=== PATIENT | female | born 1955 | race Caucasian/White ===

== ENCOUNTER 2018-07-22 21:38 | Emergency (ER) | payer OTHER ==
[~2018-07-22] VITALS: Ht 157.5 cm; Wt 68.0 kg
[2018-07-22 21:40] VITALS: BP 98/64
[2018-07-22] MEDS ORDERED: Acetaminophen 500mg (ES) tab ORAL ONE (22:15)
[2018-07-22] MEDS ORDERED: Albuterol ud Inhalation HHN ONE (22:15)
[2018-07-22] MEDS ORDERED: Ipratropium 0.02% Inh Soln 2.5ml UD HHN ONE (22:15)
[2018-07-22 23:02] LABS: HEMATOCRIT 32.5 % (37.0-47.0); HEMOGLOBIN 10.7 G/DL (12.0-16.0); MEAN CORPUSCULAR VOLUME 86 FL (80-99); PLATELET COUNT 227 K/UL (150-450); RED CELL DISTRIBUTION WIDTH 11.2 % (11.6-14.8); WHITE BLOOD COUNT 11.8 K/UL (4.8-10.8)
[2018-07-22 23:39] LABS: ANION GAP 13 mmol/L (5-15); BLOOD UREA NITROGEN 22 mg/dL (7-18); CALCIUM 8.5 MG/DL (8.5-10.1); CARBON DIOXIDE 25 MMOL/L (21-32); CHLORIDE 103 MMOL/L (98-107); CREATININE 1.3 MG/DL (0.55-1.30); POTASSIUM 2.9 MMOL/L (3.5-5.1); SODIUM 140 MMOL/L (136-145)
[2018-07-22 23:54] LABS: ALANINE AMINOTRANSFERASE 26 U/L (12-78); ALBUMIN 2.5 G/DL (3.4-5.0); ALBUMIN/GLOBULIN RATIO 0.5 (1.0-2.7); ALKALINE PHOSPHATASE 104 U/L (46-116); ASPARTATE AMINO TRANSFERASE 22 U/L (15-37); BILIRUBIN,TOTAL 0.9 MG/DL (0.2-1.0); CKMB 1.2 NG/ML (0.0-3.6); CREATINE KINASE 149 U/L (26-308)
[2018-07-23] MEDS ORDERED: PROMETHAZINE-D118 ML ORAL (00:57)
[2018-07-23] MEDS ORDERED: LEVAQUIN750 MG ORAL (00:57)
[2018-07-23] MEDS ORDERED: TYLENOL EXTRA500 MG ORAL (00:57)
[2018-07-23] MEDS ORDERED: Levofloxacin 500mg tab ORAL ONE (01:00)
[2018-07-23 01:05] VITALS: BP 107/62
--- NOTE | 2018-07-23 03:16 | Emergency Room Report ---
History of Present Illness General Chief Complaint: Syncope Source: Patient Present Illness HPI 63-year-old female resents ED for evaluation. Patient brought in by EMS status post syncopal episode. States that she's been not feeling well for the last few days. Has had a cough with body aches and chills. States she recently got a flu shot. Cough is productive. Pain is dull, 7 out of 10, nonradiating. Notes pain to the left side of her back. Denies fevers or chills. States she went to the spa today which likely dehydrated her and she got dizzy and passed out. Denies head injury. Denies headache. No other aggravating relieving factors. Denies any other associated symptoms Allergies: Uncoded Allergies: DOGS, CATS (Allergy, Unknown, 07/22/18) Patient History Past Medical History: none, HTN, GERD Past Surgical History: none Pertinent Family History: none Social History: Denies: smoking, alcohol use, drug use Last Menstrual Period: 15 years ago Now: No Immunizations: UTD Reviewed Nursing Documentation: PMH: Agreed; PSxH: Agreed Nursing Documentation-PMH Hx Hypertension: Yes - htn, hyperlipidemia Hx Gastrointestinal Problems: Yes - gerd Review of Systems All Other Systems: negative except mentioned in HPI Physical Exam Vital Signs Date Time Temp Pulse Resp B/P (MAP) Pulse Ox O2 Delivery O2 Flow Rate FiO2 07/22/18 21:31 98.2 104 16 98/64 98 Room Air 07/22/18 22:23 21 Sp02 EP Interpretation: reviewed, normal General Appearance: no apparent distress, alert, GCS 15, non-toxic Head: normocephalic Eyes: bilateral eye normal inspection, bilateral eye PERRL ENT: normal ENT inspection Neck: normal inspection Respiratory: decreased breath sounds, crackles Cardiovascular #1: regular rate, rhythm, no edema Gastrointestinal: normal inspection Rectal: deferred Genitourinary: no CVA tenderness Musculoskeletal: normal inspection Neurologic: alert, oriented x3, responsive, motor strength/tone normal, sensory intact, speech normal Psychiatric: judgement/insight normal, memory normal, mood/affect normal, no suicidal/homicidal ideation Skin: normal inspection Lymphatic: normal inspection Medical Decision Making Diagnostic Impression: Primary Impression: Pneumonia Qualified Codes: J18.1 - Lobar pneumonia, unspecified organism Additional Impression: Syncope Qualified Codes: R55 - Syncope and collapse ER Course Hospital Course 63-year-old female presents to ED complaining of bodyaches, cough, dizziness, syncope Differential diagnoses include: URI, bronchitis, asthma/COPD, pneumonia Clinical course Patient placed on stretcher. After initial history, physical exam reveals an elderly female in no acute distress. Bilateral TM unremarkable. No pharyngeal erythema. No tonsillar exudates. No lymphadenopathy. lungs clear. I ordered labs, IV fluids, pain meds, chest x-ray. Labs reviewed-leukocytosis noted, hemoglobin/hematocrit stable, K 2.9, flu swab negative EKg - NSR, no acute ischemic changes interpreted by me Chest x-ray shows LLL infiltrate On reassessment patient states she feels better. Per curb-65 criteria, patient does not require admission. Patient can be safely discharged to home with outpatient therapy. Patient agrees with plan. Given Levaquin here Diagnosis - pneumonia, syncope Stable and discharged home with prescriptions for promethazine, Levaquin. Instructed to followup with PMD. Return to ED if symptoms recur or worsen Labs Test 07/22/18 22:30 White Blood Count 11.8 K/UL (4.8-10.8) Red Blood Count 3.80 M/UL (4.20-5.40) Hemoglobin 10.7 G/DL (12.0-16.0) Hematocrit 32.5 % (37.0-47.0) Mean Corpuscular Volume 86 FL (80-99) Mean Corpuscular Hemoglobin 28.1 PG (27.0-31.0) Mean Corpuscular Hemoglobin Concent 32.8 G/DL (32.0-36.0) Red Cell Distribution Width 11.2 % (11.6-14.8) Platelet Count 227 K/UL (150-450) Mean Platelet Volume 6.9 FL (6.5-10.1) Neutrophils (%) (Auto) % (45.0-75.0) Lymphocytes (%) (Auto) % (20.0-45.0) Monocytes (%) (Auto) % (1.0-10.0) Eosinophils (%) (Auto) % (0.0-3.0) Basophils (%) (Auto) % (0.0-2.0) Differential Total Cells Counted 100 Neutrophils % (Manual) 80 % (45-75) Lymphocytes % (Manual) 11 % (20-45) Monocytes % (Manual) 7 % (1-10) Eosinophils % (Manual) 0 % (0-3) Basophils % (Manual) 0 % (0-2) Band Neutrophils 2 % (0-8) Platelet Estimate Adequate Platelet Morphology Normal Red Blood Cell Morphology Normal Sodium Level 140 MMOL/L (136-145) Potassium Level 2.9 MMOL/L (3.5-5.1) Chloride Level 103 MMOL/L (98-107) Carbon Dioxide Level 25 MMOL/L (21-32) Anion Gap 13 mmol/L (5-15) Blood Urea Nitrogen 22 mg/dL (7-18) Creatinine 1.3 MG/DL (0.55-1.30) Estimat Glomerular Filtration Rate 41.4 mL/min (>60) Glucose Level 124 MG/DL (74-106) Calcium Level 8.5 MG/DL (8.5-10.1) Total Bilirubin 0.9 MG/DL (0.2-1.0) Aspartate Amino Transf (AST/SGOT) 22 U/L (15-37) Alanine Aminotransferase (ALT/SGPT) 26 U/L (12-78) Alkaline Phosphatase 104 U/L (46-116) Total Creatine Kinase 149 U/L (26-308) Creatine Kinase MB 1.2 NG/ML (0.0-3.6) Creatine Kinase MB Relative Index 0.8 Troponin I 0.001 ng/mL (0.000-0.056) Pro-B-Type Natriuretic Peptide 517 pg/mL (0-125) Total Protein 7.2 G/DL (6.4-8.2) Albumin 2.5 G/DL (3.4-5.0) Globulin 4.7 g/dL Albumin/Globulin Ratio 0.5 (1.0-2.7) EKG Diagnostic Results Rate: normal Rhythm: NSR ST Segments: no acute changes ASA given to the pt in ED: No Rhythm Strip Diag. Results EP Interpretation: yes Rhythm: NSR, no PVC's, no ectopy Chest X-Ray Diagnostic Results Chest X-Ray Diagnostic Results : Chest X-Ray Ordered: Yes # of Views/Limited/Complete: 1 View Indication: Other - syncope EP Interpretation: Yes Interpretation: no pneumothorax, other - LLL consolidation Impression: Other - pneumonia Electronically Signed by: Electronically signed by Abhay Arambula MD Last Vital Signs Date Time Temp Pulse Resp B/P (MAP) Pulse Ox O2 Delivery O2 Flow Rate FiO2 07/23/18 01:05 98.6 102 107/62 96 Room Air 07/22/18 22:39 20 21 Status: improved Disposition: HOME, SELF-CARE Condition: Stable Scripts Acetaminophen* (TYLENOL EXTRA STRENGTH*) 500 Mg Tablet 500 MG ORAL Q8H PRN for Prn Headache/Temp > 101, #30 TAB 0 Refills Prov: Abhay Arambula MD 07/23/18 D-Methorphan Hb/Prometh Hcl* (PROMETHAZINE-DM SYRUP*) 118 Ml Syrup 5 ML ORAL Q6H PRN for For Cough, #118 ML 0 Refills Prov: Abhay Arambula MD 07/23/18 Levofloxacin* (LEVAQUIN*) 750 Mg Tablet 750 MG ORAL DAILY for 5 Days, TAB Prov: Abhay Arambula MD 07/23/18 Patient Instructions: Community-Acquired Pneumonia, Adult, [id number] Additional Instructions: patient is not able to fly on her scheduled date of 07/26. please help the patient reschedule her flight to a later date Abhay Arambula MD Jul 23, 2018 03:16
--- NOTE | 2018-07-23 10:10 | Diagnostic Imaging Report ---
Indication: Cough Technique: One view of the chest Comparison: none Findings: Hazy opacity is seen in the left lateral lung and left lung base. There are some linear opacities in the retrocardiac region. The right lung and pleural space are clear. The heart size is normal. Impression: Left basilar infiltrate, likely pneumonia This agrees with the preliminary interpretation provided by the emergency room physician
== END 2018-07-23 01:05 | disposition home or self-care (01) ==
LOC: EDBD 21:38 → EMR 22:00
DX: J18.9 Pneumonia, unspecified organism (principal); R55 Syncope and collapse; E78.5 Hyperlipidemia, unspecified; K21.9 Gastro-esophageal reflux disease without esophagitis
CPT/HCPCS: 36415; 71045; 80053; 82550; 82553; 83880; 84484; 85007; 85025; 86710; 93005; 94640; 94664; 96360; 99284; J8499

== ENCOUNTER 2018-07-25 11:14 | Inpatient (IN) | payer OTHER ==
[~2018-07-25] VITALS: Ht 157.5 cm; Wt 72.6 kg
[~2018-07-25 11:14] MED LIST: LEVAQUIN750 MG ORAL; PROMETHAZINE-D118 ML ORAL; TYLENOL EXTRA500 MG ORAL
[2018-07-25 11:24] VITALS: BP 127/78
[2018-07-25] MEDS ORDERED: ATORVASTATIN CA20 MG ORAL (11:32)
[2018-07-25] MEDS ORDERED: AMLODIPINE BESYL5 MG ORAL (11:32)
[2018-07-25] MEDS ORDERED: PRILOSEC OTC20 MG ORAL (11:32)
[2018-07-25] MEDS ORDERED: Albuterol ud Inhalation HHN ONE ×2 (11:45→16:45)
[2018-07-25] MEDS ORDERED: Ipratropium 0.02% Inh Soln 2.5ml UD HHN ONE (11:45)
[2018-07-25] MEDS ORDERED: oxyCODONE HCL/Acetaminophen 5/325mg ORAL ONE (11:45)
--- NOTE | 2018-07-25 12:39 | Emergency Room Report ---
History of Present Illness General Chief Complaint: Upper Respiratory Illness Source: Patient, Medical Record Present Illness HPI The patient was seen July 22 and diagnosed with pneumonia on the left-hand side. She continues to have persistent pain on that side as pleuritic. It's now constant also. She's had a cough that she's been unable to control. She was given a prescription for Phenergan with codeine however she feels that that medicine is making the cough worse. She also has a history of asthma and is used to using Atrovent nebulizer. She tried to use an inhaler however she felt that this was making the cough worse also. She feels that prednisone may help her also. She was started on Levaquin and continues to take the Levaquin at this time. The pain is severe 10/10, pleuritic, not radiating, more posterior chest. Cough is severe and unremitting, though not taking inhaler or cough medicine as she feels this worsens cough. She flew to [facility] from [facility] on the . She was exposed to smoke there and started to have some cough. She had a sore throat at that time and was exposed to young kids with possible URIs. No NVD, dysuria. No rashes. No headache. After IV, no dizziness. During the prior visit she was told her blood pressure was low and her potassium also low. She stopped taking her blood pressure medicine as BP was low. An influenza swab was negative. When she presented before, she had gone to a spa and passed out. Denies calf pain or edema. No prior h/o blood clots. Allergies: Uncoded Allergies: DOGS, CATS (Allergy, Unknown, 07/22/18) Patient History Past Medical History: see triage record, old chart reviewed Social History: Denies: smoking, alcohol use, drug use Social History Narrative from [facility] Last Menstrual Period: menopause Reviewed Nursing Documentation: PMH: Agreed; PSxH: Agreed Nursing Documentation-PMH Past Medical History: No History, Except For Hx Hypertension: Yes - htn, hyperlipidemia Hx Asthma: Yes Hx COPD: Yes Hx Gastrointestinal Problems: Yes - gerd Review of Systems All Other Systems: negative except mentioned in HPI Physical Exam Vital Signs Date Time Temp Pulse Resp B/P (MAP) Pulse Ox O2 Delivery O2 Flow Rate FiO2 07/25/18 11:24 89 16 Room Air 07/25/18 11:24 98.2 127/78 96 07/25/18 11:57 21 Sp02 EP Interpretation: reviewed, normal General Appearance: no apparent distress, GCS 15, non-toxic, other - weak but ambulatory Head: normocephalic, atraumatic Eyes: bilateral eye normal inspection, bilateral eye PERRL, bilateral eye EOMI ENT: normal pharynx, normal voice, moist mucus membranes Neck: supple Respiratory: decreased breath sounds, wheezing, expiration Cardiovascular #1: regular rate, rhythm, no edema Cardiovascular #2: 2+ radial (R) Gastrointestinal: normal inspection, normal bowel sounds, non tender, no mass, non-distended Genitourinary: no CVA tenderness Musculoskeletal: back normal, gait/station normal, normal range of motion, no calf tenderness, Litzy's Sign negative Neurologic: alert, oriented x3, grossly normal Psychiatric: mood/affect normal Skin: normal inspection, warm/dry Medical Decision Making Diagnostic Impression: Primary Impression: Pneumonia Qualified Codes: J18.9 - Pneumonia, unspecified organism Additional Impressions: Bronchospasm Pleural effusion Hypoxia Hypokalemia Pleurisy with effusion Syncope Qualified Codes: T67.1XXD - Heat syncope, subsequent encounter ER Course Patient re-presents with L pleuritic chest pain with diagnosis of pneumonia. DDX: pleurisy, PNA, PE, [place] amongst others. Clinically, PE less likely, though with recent travel of concern. Patient with significant bronchospasm at this time. Evaluation with EKG, CXR. Prednisone and analgesia (Percocet) given with breathing treatments. EKG without injury or ST changes suggestive of PE. CXR with effusions and infiltrate L. Improved with less cough and less dyspnea. However, states pain still significant pain and low O2 sat (although feels somewhat better). IV and labs ordered with CT of chest. Unable to do CTA so will do venous doppler. Based on EKG and VS, doubt PE clinically. IV analgesia also ordered. Venous doppler neg. CT with infiltrate left lower and upper lobes. Effusion (small). K+ low and replacement begun. Clinically improved but needs continued IV antibiotics and breathing treatments with potassium replacement. Admit med Dr. Salgado. Discussed with Dr. Urias. Laboratory Tests Test 07/25/18 14:20 07/25/18 14:30 07/25/18 18:15 White Blood Count 9.5 K/UL (4.8-10.8) Red Blood Count 4.01 M/UL (4.20-5.40) L Hemoglobin 11.2 G/DL (12.0-16.0) L Hematocrit 34.4 % (37.0-47.0) L Mean Corpuscular Volume 86 FL (80-99) Mean Corpuscular Hemoglobin 28.0 PG (27.0-31.0) Mean Corpuscular Hemoglobin Concent 32.6 G/DL (32.0-36.0) Red Cell Distribution Width 11.9 % (11.6-14.8) Platelet Count 370 K/UL (150-450) Mean Platelet Volume 6.3 FL (6.5-10.1) L Neutrophils (%) (Auto) 82.3 % (45.0-75.0) H Lymphocytes (%) (Auto) 11.6 % (20.0-45.0) L Monocytes (%) (Auto) 4.1 % (1.0-10.0) Eosinophils (%) (Auto) 1.4 % (0.0-3.0) Basophils (%) (Auto) 0.7 % (0.0-2.0) Prothrombin Time 9.6 SEC (9.30-11.50) Prothrombin Time INR 0.9 (0.9-1.1) PTT 31 SEC (23-33) Sodium Level 139 MMOL/L (136-145) Potassium Level 2.8 MMOL/L (3.5-5.1) L Chloride Level 101 MMOL/L (98-107) Carbon Dioxide Level 27 MMOL/L (21-32) Anion Gap 10 mmol/L (5-15) Blood Urea Nitrogen 19 mg/dL (7-18) H Creatinine 0.9 MG/DL (0.55-1.30) Estimate Glomerular Filtration Rate > 60 mL/min (>60) Glucose Level 133 MG/DL (74-106) H Hemoglobin A1c 6.1 % (4.3-6.0) H Calcium Level 9.0 MG/DL (8.5-10.1) Magnesium Level 2.0 MG/DL (1.8-2.4) Total Bilirubin 0.3 MG/DL (0.2-1.0) Aspartate Amino Transferase (AST) 38 U/L (15-37) H Alanine Aminotransferase (ALT) 54 U/L (12-78) Alkaline Phosphatase 109 U/L (46-116) Troponin I 0.001 ng/mL (0.000-0.056) Pro-B-Type Natriuretic Peptide 304 pg/mL (0-125) H 276 pg/mL (0-125) H Total Protein 8.3 G/DL (6.4-8.2) H Albumin 2.7 G/DL (3.4-5.0) L Globulin 5.6 g/dL Albumin/Globulin Ratio 0.5 (1.0-2.7) L Urine Color Yellow Urine Appearance Clear Urine pH 6 (4.5-8.0) Urine Specific [place] 1.015 (1.005-1.035) Urine Protein 1+ (NEGATIVE) H Urine Glucose (UA) Negative (NEGATIVE) Urine Ketones Negative (NEGATIVE) Urine Blood 4+ (NEGATIVE) H Urine Nitrite Negative (NEGATIVE) Urine Bilirubin Negative (NEGATIVE) Urine Urobilinogen 1 MG/DL (0.0-1.0) H Urine Leukocyte Esterase Negative (NEGATIVE) Urine RBC 5-10 /HPF (0 - 2) H Urine WBC 2-4 /HPF (0 - 2) Urine Squamous Epithelial Cells Few /LPF (NONE/OCC) Urine Bacteria Few /HPF (NONE) EKG Diagnostic Results Rate: normal Rhythm: NSR ST Segments: no acute changes - LAE NSSTTW changes Rhythm Strip Diag. Results EP Interpretation: yes Rhythm: NSR, no PVC's, no ectopy Chest X-Ray Diagnostic Results Chest X-Ray Diagnostic Results : Chest X-Ray Ordered: Yes # of Views/Limited/Complete: 1 View Indication: Chest Pain Interpretation: no pneumothorax, other - bilateral effusions Impression: Other Electronically Signed by: Electronically signed by Nilo Valenzuela MD CT/MRI/US Diagnostic Results CT/MRI/US Diagnostic Results #1: Imaging Test Ordered: doppler Impression No DVT CT/MRI/US Diagnostic Results #2: Imaging Test Ordered: CT chest Impression Left upper lobe and airspace disease with air bronchograms along the major fissure. Tree in bed groundglass Tab space opacities left lower lobe. Findings worrisome for pneumonia, follow-up to full resolution to exclude neoplasm. A tiny left pleural effusion Last 24 Hour Vital Signs Date Time Temp Pulse Resp B/P (MAP) Pulse Ox O2 Delivery O2 Flow Rate FiO2 07/25/18 16:44 92 18 94 Room Air 21 07/25/18 16:44 98.2 91 16 124/76 100 Room Air 07/25/18 15:38 98.2 07/25/18 12:37 90 18 99 Room Air 21 07/25/18 12:36 21 07/25/18 12:22 98.2 07/25/18 11:57 89 18 91 Room Air 21 07/25/18 11:24 98.2 89 16 127/78 96 Room Air 07/25/18 11:24 98.2 89 16 127/78 96 Room Air 07/25/18 11:24 89 16 Room Air Status: improved Disposition: ADMITTED INPATIENT Condition: Serious Nilo Valenzuela MD Jul 25, 2018 12:38
[2018-07-25] MEDS ORDERED: cefTRIAXone 1 GM in NS 55 ML IV STA (14:08)
[2018-07-25] MEDS ORDERED: Morphine Sulfate 4mg/ml Inj (IV/IM USE ONLY) IVP ONE (14:15)
--- NOTE | 2018-07-25 14:32 | Diagnostic Imaging Report ---
EXAM: XR Chest, 1 View CLINICAL HISTORY: COUGH TECHNIQUE: Frontal view of the chest. COMPARISON: Chest x-ray 07/23/18 FINDINGS: Lungs: Mild left lung base atelectasis/airspace disease. Pleural space: Tiny bilateral pleural effusions. No pneumothorax. Heart: Heart size upper limits normal. Mediastinum: Unremarkable. Bones/joints: Mild scoliosis of the thoracic spine. IMPRESSION: Tiny bilateral pleural effusions. Mild left lung base atelectasis/airspace disease.
[2018-07-25 14:47] LABS: BASOPHILS % (AUTO) 0.7 % (0.0-2.0); EOSINOPHILS % (AUTO) 1.4 % (0.0-3.0); HEMATOCRIT 34.4 % (37.0-47.0); HEMOGLOBIN 11.2 G/DL (12.0-16.0); LYMPHOCYTES % (AUTO) 11.6 % (20.0-45.0); MEAN CORPUSCULAR VOLUME 86 FL (80-99); MONOCYTES % (AUTO) 4.1 % (1.0-10.0); NEUTROPHILS % (AUTO) 82.3 % (45.0-75.0); PLATELET COUNT 370 K/UL (150-450); RED BLOOD COUNT 4.01 M/UL (4.20-5.40); RED CELL DISTRIBUTION WIDTH 11.9 % (11.6-14.8); WHITE BLOOD COUNT 9.5 K/UL (4.8-10.8)
[2018-07-25 14:50] LABS: APPEARANCE,URINE CLEAR; BILIRUBIN, URINE NEGATIVE (NEGATIVE); GLUCOSE, URINE (UA) NEGATIVE (NEGATIVE); KETONES,URINE NEGATIVE (NEGATIVE); LEUKOCYTE ESTERASE ,URINE NEGATIVE (NEGATIVE); NITRITE,URINE NEGATIVE (NEGATIVE); PH,URINE 6 (4.5-8.0); PROTEIN,URINE 1+ (NEGATIVE); UROBILINOGEN,URINE 1 MG/DL (0.0-1.0)
[2018-07-25 14:53] LABS: COLOR,URINE YELLOW
[2018-07-25 15:02] LABS: INR 0.9 (0.9-1.1)
[2018-07-25 15:06] LABS: ALANINE AMINOTRANSFERASE 54 U/L (12-78); ALBUMIN 2.7 G/DL (3.4-5.0); ALBUMIN/GLOBULIN RATIO 0.5 (1.0-2.7); ALKALINE PHOSPHATASE 109 U/L (46-116); ANION GAP 10 mmol/L (5-15); ASPARTATE AMINO TRANSFERASE 38 U/L (15-37); BILIRUBIN,TOTAL 0.3 MG/DL (0.2-1.0); BLOOD UREA NITROGEN 19 mg/dL (7-18); CARBON DIOXIDE 27 MMOL/L (21-32); CHLORIDE 101 MMOL/L (98-107); CREATININE 0.9 MG/DL (0.55-1.30); POTASSIUM 2.8 MMOL/L (3.5-5.1); SODIUM 139 MMOL/L (136-145)
--- NOTE | 2018-07-25 15:31 | Diagnostic Imaging Report ---
EXAM: CT Chest Without Intravenous Contrast CLINICAL HISTORY: CP TECHNIQUE: Axial computed tomography images of the chest without intravenous contrast. CTDI is 23.44 mGy and DLP is 893 mGy-cm. One or more of the following dose reduction techniques were used: automated exposure control, adjustment of the mA and/or kV according to patient size, use of iterative reconstruction technique. COMPARISON: No relevant prior studies available. FINDINGS: Lungs: Left upper lobe and airspace disease with air bronchograms along the major fissure. Tree-in-bud groundglass airspace opacities left lower lobe. Pleural space: Tiny left pleural effusion. No pneumothorax. Heart: Unremarkable. No cardiomegaly. No significant pericardial effusion. Bones/joints: Mild scoliosis. Degenerative changes of the spine. No acute fracture. No dislocation. Soft tissues: Unremarkable. Vasculature: Unremarkable. No thoracic aortic aneurysm. Lymph nodes: Small mediastinal lymph nodes. Stomach and bowel: Large hiatal hernia with part of the stomach herniated into the chest. IMPRESSION: Left upper lobe and airspace disease with air bronchograms along the major fissure. Tree-in-bud groundglass airspace opacities left lower lobe. Findings worrisome for pneumonia, follow-up to full resolution to exclude neoplasm..
[2018-07-25 16:44] VITALS: BP 124/76
[2018-07-25 17:30] VITALS: BP 133/66
[2018-07-25] MEDS: Albuterol/Ipratropium 3ml neb HHN SCH ×2 (19:20→23:21)
[2018-07-25] MEDS ORDERED: Morphine Sulfate 2mg/ml Inj IVP PRN (19:30)
[2018-07-25 20:00] VITALS: BP 112/64
[2018-07-25] MEDS: Heparin 5000 units/ml inj SUBQ SCH (21:26)
[2018-07-26] VITALS: BP 122/69
[2018-07-26] MEDS: Albuterol/Ipratropium 3ml neb HHN SCH ×6 (03:00→23:41)
[2018-07-26 04:00] VITALS: BP 140/90
[2018-07-26 08:00] VITALS: BP 134/79
[2018-07-26] MEDS: Heparin 5000 units/ml inj SUBQ SCH ×2 (08:43→20:48)
[2018-07-26] MEDS: Docusate 100mg cap ORAL SCH ×2 (09:00→09:55)
--- NOTE | 2018-07-26 09:39 | History and Physical ---
History of Present Illness General Date patient seen: Jul 26, 2018 Time patient seen: 09:22 Reason for Hospitalization: Upper Respiratory Illness Present Illness HPI 63 yo female with h/o htn, asthma presents with sob and coughs for one week. Patient states she fell in her shower, did not hit her head, did not LOC. States she has not stopped coughing for a week now. States she was given abx from the ED but it did not help her symptoms. States inhalers help her. Denies any chest pain but admits to back pain from the coughing. Denies any fevers/ chills, no nausea/vomiting. Patient required nebulizer treatments here and IV abx. CT chest confirmed Left lower lobe pneumonia. Feels very weak. Denies any vision changes. has coughs, nonproductive. back pain is left sided, nonradiating. patient admits to being a previous smoker, used to smoke 1ppd, states she quit over 5 years ago. social hx: denies smoking anymore, denies alcohol use, denies drug use family hx: reviewed, denies any sig past fam hx code status reviewed, patient would like to remain full code ROS: 14 point ros reviewed, negative except for the above. Allergies: Uncoded Allergies: DOGS, CATS (Allergy, Unknown, 07/22/18) Medication History Scheduled Amlodipine Besylate* (Amlodipine Besylate*), 5 MG ORAL DAILY, (Reported) Atorvastatin Calcium* (Atorvastatin Calcium*), 20 MG ORAL BEDTIME, (Reported) Levofloxacin* (Levaquin*), 750 MG ORAL DAILY Omeprazole Magnesium (Prilosec Otc), 40 MG ORAL DAILY, (Reported) Scheduled PRN Acetaminophen* (Tylenol Extra Strength*), 500 MG ORAL Q8H PRN for Prn Headache/ Temp > 101 D-Methorphan Hb/Prometh Hcl* (Promethazine-Dm Syrup*), 5 ML ORAL Q6H PRN for For Cough Patient History Healthcare decision maker Weston Hong Resuscitation status Full Code Advanced Directive on File Physical Exam General Appearance: mild distress Lines, tubes and drains: peripheral HEENT: normocephalic, atraumatic, anicteric Neck: non-tender, normal alignment, supple, normal inspection Respiratory/Chest: chest wall non-tender, no accessory muscle use, other - mild exp wheezing apprecaited b/l with left lower lobe rhonchi Cardiovascular/Chest: normal peripheral pulses, normal rate, regular rhythm Abdomen: normal bowel sounds, non tender, soft Extremities: normal range of motion, non-tender, normal inspection Skin Exam: normal pigmentation, warm/dry 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, no motor/sensory deficits, alert, oriented x 3, responsive, normal mood/affect Last 24 Hour Vital Signs Date Time Temp Pulse Resp B/P (MAP) Pulse Ox O2 Delivery O2 Flow Rate FiO2 07/26/18 08:42 101 134/79 07/26/18 08:00 97.8 101 16 134/79 (97) 95 07/26/18 07:37 85 18 97 Room Air 21 07/26/18 07:27 83 18 92 Room Air 21 07/26/18 04:00 98.2 99 19 140/90 (107) 94 07/26/18 03:48 Room Air 21 07/26/18 03:47 Room Air 21 07/26/18 00:00 97.7 112 20 122/69 (86) 95 07/25/18 23:24 102 20 100 Room Air 21 07/25/18 23:22 96 21 07/25/18 23:13 98 20 98 Room Air 21 07/25/18 21:00 Room Air 07/25/18 20:00 97.9 106 20 112/64 (80) 94 07/25/18 19:21 99 20 99 Room Air 21 07/25/18 17:36 98.2 91 18 124/76 99 Room Air 21 07/25/18 17:30 Room Air 07/25/18 17:30 97.4 95 17 133/66 (88) 95 07/25/18 17:02 92 18 99 Room Air 21 07/25/18 16:57 21 07/25/18 16:44 92 18 94 Room Air 21 07/25/18 16:44 98.2 91 16 124/76 100 Room Air 07/25/18 15:38 98.2 07/25/18 12:37 90 18 99 Room Air 21 07/25/18 12:36 21 07/25/18 12:22 98.2 07/25/18 11:57 89 18 91 Room Air 21 07/25/18 11:24 98.2 89 16 127/78 96 Room Air 07/25/18 11:24 98.2 89 16 127/78 96 Room Air 07/25/18 11:24 89 16 Room Air Intake and Output 07/25/18 07/26/18 19:00 07:00 Intake Total 300 ml 120 ml Balance 300 ml 120 ml Intake Oral 300 ml 120 ml # Voids 1 Laboratory Tests Test 07/25/18 14:20 07/25/18 14:30 07/25/18 18:15 White Blood Count 9.5 K/UL (4.8-10.8) Red Blood Count 4.01 M/UL (4.20-5.40) L Hemoglobin 11.2 G/DL (12.0-16.0) L Hematocrit 34.4 % (37.0-47.0) L Mean Corpuscular Volume 86 FL (80-99) Mean Corpuscular Hemoglobin 28.0 PG (27.0-31.0) Mean Corpuscular Hemoglobin Concent 32.6 G/DL (32.0-36.0) Red Cell Distribution Width 11.9 % (11.6-14.8) Platelet Count 370 K/UL (150-450) Mean Platelet Volume 6.3 FL (6.5-10.1) L Neutrophils (%) (Auto) 82.3 % (45.0-75.0) H Lymphocytes (%) (Auto) 11.6 % (20.0-45.0) L Monocytes (%) (Auto) 4.1 % (1.0-10.0) Eosinophils (%) (Auto) 1.4 % (0.0-3.0) Basophils (%) (Auto) 0.7 % (0.0-2.0) Prothrombin Time 9.6 SEC (9.30-11.50) Prothromb Time International Ratio 0.9 (0.9-1.1) Activated Partial Thromboplast Time 31 SEC (23-33) Sodium Level 139 MMOL/L (136-145) Potassium Level 2.8 MMOL/L (3.5-5.1) L Chloride Level 101 MMOL/L (98-107) Carbon Dioxide Level 27 MMOL/L (21-32) Anion Gap 10 mmol/L (5-15) Blood Urea Nitrogen 19 mg/dL (7-18) H Creatinine 0.9 MG/DL (0.55-1.30) Estimat Glomerular Filtration Rate > 60 mL/min (>60) Glucose Level 133 MG/DL (74-106) H Hemoglobin A1c 6.1 % (4.3-6.0) H Calcium Level 9.0 MG/DL (8.5-10.1) Magnesium Level 2.0 MG/DL (1.8-2.4) Total Bilirubin 0.3 MG/DL (0.2-1.0) Aspartate Amino Transf (AST/SGOT) 38 U/L (15-37) H Alanine Aminotransferase (ALT/SGPT) 54 U/L (12-78) Alkaline Phosphatase 109 U/L (46-116) Troponin I 0.001 ng/mL (0.000-0.056) Pro-B-Type Natriuretic Peptide 304 pg/mL (0-125) H 276 pg/mL (0-125) H Total Protein 8.3 G/DL (6.4-8.2) H Albumin 2.7 G/DL (3.4-5.0) L Globulin 5.6 g/dL Albumin/Globulin Ratio 0.5 (1.0-2.7) L Urine Color Yellow Urine Appearance Clear Urine pH 6 (4.5-8.0) Urine Specific [place] 1.015 (1.005-1.035) Urine Protein 1+ (NEGATIVE) H Urine Glucose (UA) Negative (NEGATIVE) Urine Ketones Negative (NEGATIVE) Urine Blood 4+ (NEGATIVE) H Urine Nitrite Negative (NEGATIVE) Urine Bilirubin Negative (NEGATIVE) Urine Urobilinogen 1 MG/DL (0.0-1.0) H Urine Leukocyte Esterase Negative (NEGATIVE) Urine RBC 5-10 /HPF (0 - 2) H Urine WBC 2-4 /HPF (0 - 2) Urine Squamous Epithelial Cells Few /LPF (NONE/OCC) Urine Bacteria Few /HPF (NONE) Height (Feet): 5 Height (Inches): 2.00 Weight (Pounds): 160 Medications Current Medications Medications (Trade) Dose Ordered Sig/Chad Route PRN Reason Start Time Stop Time Status Last Admin Dose Admin Albuterol/ Ipratropium (Albuterol/ Ipratropium) 3 ml Q4HRT HHN 07/25/18 19:00 07/30/18 18:59 07/26/18 07:27 Amlodipine Besylate (Norvasc) 5 mg DAILY ORAL 07/26/18 09:00 08/25/18 08:59 07/26/18 08:42 Docusate Sodium (Colace) 100 mg DAILY ORAL 07/26/18 09:00 08/25/18 08:59 Heparin Sodium (Porcine) (Heparin 5000 units/ml) 5,000 units EVERY 12 HOURS SUBQ 07/25/18 21:00 08/24/18 20:59 07/26/18 08:43 Levofloxacin 150 ml @ 100 mls/hr Q24H IVPB 07/26/18 16:00 08/02/18 15:59 Morphine Sulfate (Morphine Sulfate) 2 mg Q6H PRN IVP For Pain 07/25/18 19:30 08/01/18 19:29 Ondansetron HCl (Zofran) 4 mg Q4H PRN IVP Nausea & Vomiting 07/26/18 08:04 08/25/18 08:03 Pantoprazole (Protonix) 40 mg DAILY ORAL 07/26/18 09:00 08/25/18 08:59 07/26/18 08:42 Prednisone (predniSONE) 40 mg DAILY ORAL 07/26/18 09:00 08/25/18 08:59 07/26/18 08:42 Assessment/Plan Problem List: (1) Community acquired bacterial pneumonia Assessment & Plan: CXR and CT reviewd with left lower lobe consolidation cont with levofloxacin breathing tx should improve ICD Codes: J15.9 - Unspecified bacterial pneumonia SNOMED: 53392923, 399311806 (2) Acute respiratory failure with hypoxia Assessment & Plan: due to cap and asthma exacerbation patient was placed on oxygen ncl on admit as patient was desating to 86 on room air weaned off o2 ncl after breathing treatments and abx breathing well on room air currently ICD Codes: J96.01 - Acute respiratory failure with hypoxia SNOMED: 15023767, 819087702 (3) Pleurisy with effusion Assessment & Plan: small effusion noted on CT due to pneumonia cont abx treatment monitor resp condition ICD Codes: J90 - Pleural effusion, not elsewhere classified SNOMED: 75654093 (4) Syncope Assessment & Plan: no LOC, did not hit head, patient felt light headed and went down to her knees did not hurt herself she states due to coughing from pneumonia and asthma exacerbation ICD Codes: R55 - Syncope and collapse SNOMED: 315020732 Qualifiers: Qualified Codes: T67.1XXD - Heat syncope, subsequent encounter (5) Bronchospasm Assessment & Plan: breathing tx nebulizers steroids given on admit abx improving weaned off o2 ICD Codes: J98.01 - Acute bronchospasm SNOMED: 9857439 (6) Hypokalemia Assessment & Plan: K 2.8 replenish with KCL check mg levels ICD Codes: E87.6 - Hypokalemia SNOMED: 43474701 (7) Asthma exacerbation Assessment & Plan: breathing tx weaned off o2 steroids given on admit monitor closely pulse ox tele ICD Codes: J45.901 - Unspecified asthma with (acute) exacerbation SNOMED: 999079927 (8) Hx of smoking Assessment & Plan: quit over 5 years ago smoked 1ppd ICD Codes: Z87.891 - Personal history of nicotine dependence SNOMED: 57278125148231734 (9) Essential hypertension Assessment & Plan: resume home meds: amlodipine ICD Codes: I10 - Essential (primary) hypertension SNOMED: 81839047 Status: stable Assessment/Plan ppx: heparin diet: regular diet I have spent over 61 minutes regarding patient care and counseling and over 40 minutes of face to face time with the patient admit to inpatient will required around 2- 3 days stay Berta Urias MD Jul 26, 2018 09:38
[2018-07-26 09:57] LABS: ANION GAP 10 mmol/L (5-15); BLOOD UREA NITROGEN 20 mg/dL (7-18); CALCIUM 9.1 MG/DL (8.5-10.1); CARBON DIOXIDE 27 MMOL/L (21-32); CHLORIDE 106 MMOL/L (98-107); CREATININE 0.9 MG/DL (0.55-1.30); POTASSIUM 3.4 MMOL/L (3.5-5.1); SODIUM 143 MMOL/L (136-145)
[2018-07-26 12:00] VITALS: BP 131/82
[2018-07-26 16:00] VITALS: BP 131/80
[2018-07-26 19:58] VITALS: BP 113/71
[2018-07-26] MEDS: Tums 500mg ORAL PRN (22:34)
[2018-07-27 00:11] VITALS: BP 119/73
[2018-07-27] MEDS: Albuterol/Ipratropium 3ml neb HHN SCH ×3 (03:00→11:00)
[2018-07-27 04:00] VITALS: BP 119/73
[2018-07-27 06:41] LABS: BASOPHILS % (AUTO) 0.8 % (0.0-2.0); EOSINOPHILS % (AUTO) 1.8 % (0.0-3.0); HEMATOCRIT 30.6 % (37.0-47.0); LYMPHOCYTES % (AUTO) 29.1 % (20.0-45.0); MEAN CORPUSCULAR VOLUME 86 FL (80-99); MONOCYTES % (AUTO) 7.1 % (1.0-10.0); NEUTROPHILS % (AUTO) 61.3 % (45.0-75.0); PLATELET COUNT 421 K/UL (150-450); RED BLOOD COUNT 3.53 M/UL (4.20-5.40); RED CELL DISTRIBUTION WIDTH 12.4 % (11.6-14.8); WHITE BLOOD COUNT 10.8 K/UL (4.8-10.8)
[2018-07-27 06:54] LABS: ANION GAP 8 mmol/L (5-15); BLOOD UREA NITROGEN 16 mg/dL (7-18); CALCIUM 8.8 MG/DL (8.5-10.1); CARBON DIOXIDE 28 MMOL/L (21-32); CHLORIDE 106 MMOL/L (98-107); CREATININE 0.9 MG/DL (0.55-1.30); POTASSIUM 4.2 MMOL/L (3.5-5.1); SODIUM 142 MMOL/L (136-145)
[2018-07-27 08:00] VITALS: BP 107/68
[2018-07-27] MEDS ORDERED: ALBUTEROL2.5 MG/3 M HHN (08:05)
[2018-07-27] MEDS ORDERED: PREDNISONE20 MG ORAL (08:05)
[2018-07-27] MEDS ORDERED: LEVAQUIN750 MG ORAL (08:05)
--- NOTE | 2018-07-27 08:16 | Discharge Summary ---
Discharge Summary Hospital Course Date of Admission Jul 26, 2018 at 14:35 Date of Discharge 07/27/18 Admitting Diagnosis Pneumonia/Bronchospasm HPI Kadie Hong is a 63 year old female who was admitted on Jul 25, 2018 at 14: 35 for Community Acquired Pneumonia, COPD exacerbation, Acute hypoxic respiratory failure h/o htn, COPD presents with sob and coughs for one week. Patient states she fell in her shower, did not hit her head, did not LOC. States she has not stopped coughing for a week now. States she was given abx from the ED but it did not help her symptoms. States inhalers help her. Denies any chest pain but admits to back pain from the coughing. Denies any fevers/chills, no nausea/ vomiting. Patient required nebulizer treatments here and IV abx. CT chest confirmed Left lower lobe pneumonia. Feels very weak. Denies any vision changes. has coughs, nonproductive. back pain is left sided, nonradiating. patient admits to being a previous smoker, used to smoke 1ppd, states she quit over 5 years ago. patient was started on abx, lvq for CAP and breathing tx with steroids. Patient initially required O2 ncl due to desaturing while in respiratory distress. after a few breathing tx and steroids patient was breathing better on room air. patient improved faster than expected and is stable for dc today TTE was done as well, it was reviewed by myself, relatively normal with trace pericardial effusion, normal LVEF, mild pulm htn noted with pressures around 30mmHg in the right ventricle. patient to be dc'd home with 3 days of prednisone, levofloxacin and albuterol inhaler. 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, no motor/sensory deficits, alert, oriented x 3, responsive, normal mood/affect Hospital Course I have spent over 41 minutes regarding patient care and counseling and oraganizing appropriate discharge for patient and over 23minutes of face to face time with the patient Discharge Medications New Medications: Albuterol Sulfate* (Albuterol Sulfate Hhn*) 2.5 Mg/3 Ml Vial.neb 2.5 MG HHN Q4H PRN, #25 VIAL Prednisone* (Prednisone*) 20 Mg Tablet 40 MG ORAL DAILY for 4 Days, #4 TAB Continued Medications: Acetaminophen* (Tylenol Extra Strength*) 500 Mg Tablet 500 MG ORAL Q8H PRN for Prn Headache/Temp > 101, #30 TAB 0 Refills Amlodipine Besylate* (Amlodipine Besylate*) 5 Mg Tablet 5 MG ORAL DAILY, TAB (This prescription has been renewed) Atorvastatin Calcium* (Atorvastatin Calcium*) 20 Mg Tablet 20 MG ORAL BEDTIME, TAB (This prescription has been renewed) D-Methorphan Hb/Prometh Hcl* (Promethazine-Dm Syrup*) 118 Ml Syrup 5 ML ORAL Q6H PRN for For Cough, #118 ML 0 Refills Levofloxacin* (Levaquin*) 750 Mg Tablet 750 MG ORAL DAILY for 5 Days, #5 TAB (This prescription has been renewed) Omeprazole Magnesium (Prilosec Otc) 20 Mg Tablet.dr 40 MG ORAL DAILY, TAB (This prescription has been renewed) Discharge Condition Upon Discharge: stable Discharge Disposition Patient was discharged to home Discharge Diagnoses: (1) COPD exacerbation (2) Pulmonary HTN (3) Acute respiratory failure with hypoxia (4) Community acquired bacterial pneumonia (5) Pleurisy with effusion (6) Hx of smoking (7) Essential hypertension Berta Urias MD Jul 27, 2018 08:16
[2018-07-27] MEDS: Docusate 100mg cap ORAL SCH (09:00)
[2018-07-27] MEDS: Heparin 5000 units/ml inj SUBQ SCH (09:00)
[2018-07-27] MEDS: Tums 500mg ORAL PRN (09:35)
[2018-07-27 10:30] VITALS: BP 123/93
--- NOTE | 2018-07-27 13:08 | Diagnostic Imaging Report ---
APPROVED REPORT CPT Code: 32729 Present Symptoms Comments: BILATERAL LEGS PAIN. BILATERAL: Imaging reveals a patent deep venous system bilaterally. There is no evidence of thrombus within the femoral, popliteal or tibial segments. The greater saphenous veins are also within normal limits. Doppler indicates normal spontaneous flow within these segments.
--- NOTE | 2018-07-27 13:26 | Cardiology Report ---
APPROVED REPORT EXAM: Two-dimensional and M-mode echocardiogram with Doppler and color Doppler. INDICATION OTHER M-Mode DIMENSIONS IVSd1.4 (0.7-1.1cm)Left Atrium (MM)3.8 (1.6-4.0cm) LVDd4.8 (3.5-5.6cm)Aortic Root3.2 (2.0-3.7cm) PWd0.9 (0.7-1.1cm)Aortic Cusp Exc.1.6 (1.5-2.0cm) IVSs1.1 cm LVDs3.4 (2.5-4.0cm) PWs1.4 cm Normal left ventricular chamber size, systolic function and wall motion. Left ventricular ejection fraction estimated to be 65-70 %. No evidence of left ventricular hypertrophy. Trivial pericardial effusion. All other cardiac chamber sizes are within normal limits. Focal aortic valve sclerosis with adequate cusp excursion. Thickened mitral valve leaflets with normal excursion. Mitral annulus and aortic root calcification. Normal pulmonic valve structure. Normal tricuspid valve structure. IVC at 2.0 cm without physiologic collapse suggestive of increased RA pressure. A color flow and spectral Doppler study was performed and revealed: No aortic regurgitation. Trace mitral regurgitation. Normal left ventricular diastolic function. Trace tricuspid regurgitation. Tricuspid systolic velocities suggests peak right ventricular systolic pressure of 39 mmHg, consistent with mild pulmonary hypertension.
== END 2018-07-27 10:45 | disposition home or self-care (01) | DRG 193 ==
LOC: EMR 14:30 → 3E 14:35 → EDBEDREQ 15:01
DX: J18.9 Pneumonia, unspecified organism (principal); J96.01 Acute respiratory failure with hypoxia; J44.1 Chronic obstructive pulmonary disease with (acute) exacerbation; I27.20 Pulmonary hypertension, unspecified; Z87.891 Personal history of nicotine dependence; I10 Essential (primary) hypertension; E78.5 Hyperlipidemia, unspecified; Z91.81 History of falling; E87.6 Hypokalemia
CPT/HCPCS: 36415; 71045; 71250; 80048; 80053; 81003; 83036; 83735; 83880; 84484; 85025; 85610; 85730; 87040; 93005; 93306; 93312; 93971; 94640; 96365; 96367; 96375; 99285; J2405; J7620; J8499